=== PATIENT | male | born 1975 | race Caucasian/White ===

== ENCOUNTER → 2016-06-05 | Outpatient (CLI) | payer SELFPAY | LOC: EMS 23:50 | DX: Z53.20 Procedure and treatment not carried out because of patient's decision for unspecified reasons (principal) ==

== ENCOUNTER → 2016-07-24 | Outpatient (CLI) | payer SELFPAY | LOC: NM 18:15 | DX: Z53.20 Procedure and treatment not carried out because of patient's decision for unspecified reasons (principal) ==